=== PATIENT | male | born 1945 | race Caucasian/White ===

== ENCOUNTER 2021-04-18 08:53 | Day surgery (SDC) | payer OTHER ==
[~2021-04-18] VITALS: Ht 167.6 cm; Wt 76.2 kg
[~2021-04-18 08:53] MED LIST: ASA81BEC PO; PRAMIPEXOLE DI0.5 MG PO; ZOCOR 20 MG TAB20 M1 PO
[2021-04-18 11:23] VITALS: BP 154/62
--- NOTE | 2021-04-18 16:19 | NUR ---
Pt transferred to unit from PACU. Pt a&ox4. Denies pain. Incisions clean and well-approximated. J.P. drain in place. IVF infusing. Call light within reach. Will continue to monitor.
[2021-04-18 20:12] VITALS: BP 147/68
--- NOTE | 2021-04-19 02:15 | NUR ---
ASSUMED PT CARE AT AROUND 1915 HRS. PT IS ALERT AND ORIENTED.POARCH. CALLS WITH NEEDS . USING URINAL, HE HAS WALKED TO THE BATHROOM TOO, GAIT IS STEADY. C/O SOME TOOTHACHE, TYLENOL GIVEN. HE DOES NOT HAVE ANY PAIN TO FACE. ARCHIE IN PLACE WITH SANGUINOUS OUTPUT.EATING AND SWALLOWING OKAY-DIFFICULTY WITH STRAW USE. PO ABTS GIVEN AND IVF INFUSING. PROGRESSING TOWARDS CARE GOALS WITH PLAN FOR D/C IN THE AM.
[2021-04-19 07:18] VITALS: BP 142/62
[2021-04-19 08:11] VITALS: BP 142/62
--- NOTE | 2021-04-19 08:28 | NUR ---
Assumed care of pt at 0700. Pt a&ox4. Pain controlled. J.P. drain in place. Incisions clean and well approximated. Pt waiting to be discharged this am. Will discharge to home.
--- NOTE | 2021-04-19 08:40 | O ---
[facility] [place] [address] OPERATIVE REPORT Name: ARLET SMITH Room #: 441-P [facility] M.R.#: [id number] Admission: 04/18/21 Attend Phys: Favian Ward MD Discharge: Date of : 41 Report #: [id number] THIS REPORT FOR: cc: FAM - Family physician unknown FAM - Family physician unknown Favian Ward MD ~ cc: Lv Muñiz DATE OF SERVICE: 04/18/2021 PREOPERATIVE DIAGNOSES: 1. Basal cell carcinoma, left medial cheek. 2. Mohs defect, left medial cheek, approximately 6 x 4 cm. 3. Mohs defect, left upper lip, approximately 2 x 1 cm. POSTOPERATIVE DIAGNOSES: 1. Basal cell carcinoma, left medial cheek. 2. Mohs defect, left medial cheek, approximately 6 x 4 cm. 3. Mohs defect, left upper lip, approximately 2 x 1 cm. PROCEDURES PERFORMED: 1. Adjacent tissue transfer, left cheek 30-60 square cm, code 72287. 2. Adjacent tissue transfer, upper lip 10 square cm, code 51460. 3. Scar contracture release of the face, code 64438. PRIMARY SURGEON: Favian Ward MD TIER OVER: None. ANESTHESIA: General. COMPLICATIONS: None. ESTIMATED BLOOD LOSS: Approximately 20 mL SPECIMENS: None. DRAINS: Left neck Elias drain. INDICATIONS FOR THE PROCEDURE: The patient is a 76-year-old male who had a recent diagnosis of basal cell carcinoma of the left medial cheek, who underwent Mohs micrographic excision of the left medial cheek, which resulted in a full thickness defect of the cheek, left upper lip and into the gingivolabial sulcus of the left upper lip. He was referred to me for formal reconstruction of the area. A thoughtful discussion was had with the patient and consent was signed in the office. [address] [address] OPERATIVE REPORT Name: ARLET SMITH Room #: 441-P [facility]#: [id number] Admission: 04/18/21 Attend Phys: Favian Ward MD Discharge: Date of : 41 Report #: [id number] DESCRIPTION OF PROCEDURE: The patient was identified in the preoperative area before being transported to the operating room and placed supine on the operating table. At this point, general anesthesia was induced and a nasotracheal intubation was performed. Once this was complete, the area was marked and injected locally with 1% lidocaine 1:100,000 epinephrine solution. After this, the patient was prepped and draped in normal sterile fashion and the table rotated 90 degrees. Starting first, the wound was copiously irrigated with sterile saline solution and sharply debrided of scar contracture and granulation tissue that had begun to form. Additionally, because this was a full-thickness defect, copious amounts of saliva and other debris were taken out of the wound. Next, attention was turned intraorally and the labial and buccal mucosa was reapproximated and sutured closed in an interrupted fashion using 4-0 Vicryl sutures. A small rotation flap of buccal mucosa was performed to achieve this closure without undue tension. This resulted in very good closure of this area. Next, attention was turned back to the wound bed of the left medial cheek. Several pumping blood vessels were identified, cross clamped and suture ligated using a 2-0 silk suture followed by marking of a left cervicofacial flap along the infraorbital rim into an area anterior to the temporal hair tuft and then into a pretarsal crease down near the patient's earlobe. This was then elevated in a subcutaneous plane, staying just deep to the hair follicles of the cheek. This was raised very widely and hemostasis was achieved using bipolar cautery at a setting of 20 ceballos. Once this was achieved, very good rotation and advancement was able to be performed and the cheek defect was closed very easily using this flap. Of note, there will be medial tissue loss subcutaneously due to the very deep nature of the resection and this was counseled to the patient before surgery. Next, a 15-[place] Elias drain was inserted and brought out underneath the left earlobe and placed into the deepest portion of the wound bed and sutured into position using 3-0 nylon. At this point, additional irrigation of the wound was performed and then this was all closed in layers using 4-0 Monocryl in the deep dermal layer, followed by 5-0 fast absorbing gut suture in a running fashion along all skin edges. Of note, in the left inferior nasolabial crease, a small subcutaneous dog ear was removed to remove this tissue redundancy. At this point, I was very pleased with the postoperative outcome. The patient had full closure of his wound, with very little morbidity noted. Please note that all instrument, sponge and needle counts were correct x2. The patient was then reversed from anesthesia and transported to PACU in stable condition having suffered no untoward event. DISPOSITION: The patient will be kept overnight for observation status given that he lives approximately an hour [place] a half away. He will be given antibiotics, pain medications, fluids and wound care. I will see him tomorrow and as long as he is doing well, I will plan on discharge home with the drain still in place. He will follow up in approximately 5 days for a wound check and [address] [address] OPERATIVE REPORT Name: ARLET SMITH Room #: 441-P [facility] M.R.#: [id number] Admission: 04/18/21 Attend Phys: Favian Ward MD Discharge: Date of : 41 Report #: [id number] drain removal. He has also been given prescriptions for chlorhexidine mouth rinse, pain medication and antibiotics that should be taken as directed. <ELECTRONICALLY SIGNED> By: Favian Ward MD 04/19/21 0840 [id number] Favian Ward MD /nt
== END 2021-04-19 09:56 | disposition home or self-care (01) ==
LOC: OR 08:53 → TBA 08:56 → OR 11:15 → 4S 16:05 → OR 04-19 09:56
PROVIDERS: ATTEND Otolaryngology
DX: C44.319 Basal cell carcinoma of skin of other parts of face (principal); M95.2 Other acquired deformity of head; K13.0 Diseases of lips; E78.00 Pure hypercholesterolemia, unspecified; F17.210 Nicotine dependence, cigarettes, uncomplicated; Z98.890 Other specified postprocedural states; Z79.899 Other long term (current) drug therapy; Z85.828 Personal history of other malignant neoplasm of skin; Z20.822 Contact with and (suspected) exposure to COVID-19
CPT/HCPCS: 50010; 50101; 50386; 50403; 51412; 56526; 56527; 57006; 58902; 62110; 62900; 65130; 70005